=== PATIENT | female | born 1975 | race Two or more races ===

== ENCOUNTER 2023-11-30 00:31 | Emergency (ER) | payer OTHER, SELFPAY ==
[2023-11-30 00:38] VITALS: BP 168/84; PULSE 72; RESP 20; TEMP 36.8; O2SAT 99; BMI 33.1
--- NOTE | 2023-11-30 01:12 | ED_ITS ---
HPI - General Adult General Chief complaint: Epistaxis/Nosebleed Stated complaint: Bloody nose Time Seen by Provider: 11/30/23 00:39 Source: patient and family Mode of arrival: ambulatory Limitations: no limitations History of Present Illness HPI narrative: 48-year-old female presents to the ED with her adult son. Nose bleed for the past 3 hours, fairly vigorous. Initially started this morning upon awakening, t hen resolved. Did bleed again but resolved in the afternoon and now for the past 3 hours. Seems to be coming from the right side. Does drip down the back of the throat. Not on any anticoagulants. No prior history of nasal surgery. No facial injury or trauma. Not prone to nosebleeds. Reports her past medical history is benign, no major long-term health problems. No prescription medications or allergies. ROS is notable for the nose bleed and some nausea as a result, otherwise denies times 12 systems. No dizziness, lightheadedness or bloody stools. Related Data Home Medications ?Medication ?Instructions ?Recorded ?Confirmed No Known Home Medications 11/30/23 11/30/23 Allergies Allergy/AdvReac Type Severity Reaction Status Date / Time No Known Drug Allergies Allergy Verified 11/30/23 00:40 PFSH PFS Medical History No significant past medical history Surgical History No significant past surgical history Social History Smoking Status: Never smoker Second hand tobacco smoke exposure: No How often do you have a drink containing alcohol: never AUDIT-C Alcohol total score: 0 Non-prescribed substance use: denies use Exam Const: Vital Signs, click to edit/add: Vital Signs - 24 hr 11/30/23 00:38 Temperature 98.2 F Pulse Rate [Right Pulse Oximeter] 72 Respiratory Rate 20 Blood Pressure [Ri ght Upper Arm] 168/84 H Pulse Oximetry 99 Oxygen Delivery Me thod Room Air Common normals: alert General appearance: cooperative and well kempt Other: Moderate nasal bleeding with pea-sized stringy blood clots. All seems to be coming from right nose. Remarkably calm. HENMT: Common normals: normocephalic and head/scalp atraumatic Head and scalp: normocephalic and atraumatic Face and sinus: normal facial exam Mouth: oral and palatal mucosa normal Other: Moderate bleeding from right near. Two brisk for me to see this source but does seem anterior. Left side of the nose normal. Some blood streaming down the back of the throat, appears to be nasal etiology. Good dentition and normal mucosa otherwise. Eye: Common normals: conjunctivae normal General eye: normal appearance of both eyes Conjunctiva: conjunctiva(e) normal Neck & C-Spine: General: normal visual inspection Resp: Common normals: normal respiratory effort, no use of accessory muscles and clear to auscultation bilaterally Effort & inspection: able to speak in complete sentences Auscultation: clear to auscultation bilaterally Cardio: Common normals: regular rate, regular rhythm, S1 normal heart sound, S2 normal heart sound and no murmurs Rate: regular rate Rhythm: regular rhythm Heart sounds: S1 normal and S2 normal Neuro: Sensorium/orientation: alert Speech: speech normal Gait (neuro): normal gait Psych: Appearance: well kempt Attitude: engaged Insight: insight good Judgement: judgment good Skin: Common normals: no rashes or lesions noted Narrative: No bruises, petechiae or signs of trauma. General skin exam: no rashes or lesions noted Course Course ED Course: No nasal clamp applied in triage. Unable to tell the immediate source of the bleeding due to risk illness. Large rhino rocket is inserted and inflated. This did cause bleeding to ceased. Observed for about 3 or 4 minutes. Will re- evaluated about 30 minutes. Reevaluation(s) Time of Reevaluation #1: 01:49 Reevaluation #1: Rhino rocket was removed after about 25 minutes, and bleeding had ceased. Patient was having a lot of discomfort from the rhino rocket. Because of this, I reexamined and it does look like this was an anterior plexus bleed. I applied TXA to the area and a nasal clamp. I am going to let this firm up for about 10 minutes, consider silver nitrate after 10 minute trial. Time of Reevaluation #2: 02:17 Reevaluation #2: Repeat examination of the nose showed tiny area of oozing. After verbal consent, silver nitrate was gently applied to this area and a thin layer of the TXA again. Well tolerated. This did stop the bleeding. Nasal clamp was reapplied. Patient counseled on management. She requests a work note to not have to work in dry conditions anymore. I told her that I am unable to provide that as I do think that her untreated high blood pressure is a larger reason. She does not work around a freezer, only in a fredis condition, sounds like a typical factory. I have encouraged her to follow up with her primary care provider to treat the high blood pressure and they can discuss work restrictions if her nosebleeds persist. No blowing the nose for 2 days. Leave the nose clamp on for 1 hour. If the bleeding restarts, reapply the nose clamp and lie down for 30 minutes. ED if it does not stop after 30 minutes. Okay to use Tylenol if needed for mild discomfort. Written instructions provided, all questions answered. Vital Signs Vital signs: Initial Vital Signs Temperature 98.2 F 11/30/23 00:38 Temperature Source Temporal Artery Scan 11/30/23 00:38 Pulse Rate 72 11/30/23 00:38 Respiratory Rate 20 11/30/23 00:38 Blood Pressure 168/84 H 11/30/23 00:38 Blood Pressure Mean 112 H 11/30/23 00:38 Blood Pressure Position Sitting 11/30/23 00:38 Pulse Oximetry 99 11/30/23 00:38 Oxygen Delivery Method Room Air 11/30/23 00:38 Vital Signs Temperature 98.2 F 11/30/23 00:38 Pulse Rate 72 11/30/23 00:38 Respiratory Rate 20 11/30/23 00:38 Blood Pressure 168/84 H 11/30/23 00:38 Pulse Oximetry 99 11/30/23 00:38 Oxygen Delivery Method Room Air 11/30/23 00:38 Temperature 98.2 F 11/30/23 00:38 Pulse Rate 72 11/30/23 00:38 Respiratory Rate 20 11/30/23 00:38 Blood Pressure 168/84 H 11/30/23 00:38 Pulse Oximetry 99 11/30/23 00:38 Oxygen Delivery Method Room Air 11/30/23 00:38 Medications Administered Medications: Generic Name Dose Route Start Last Admin Trade Name Freq PRN Reason Stop Dose Admin Tranexamic Acid 1,000 mg 11/30/23 01:39 11/30/23 01:43 Tranexamic Acid 100 Mg/Ml Inj TOPICAL 11/30/23 01:40 1,000 mg ONCE ONE Administration Discharge Plan Discharge Clinical Impression: Epistaxis Patient Disposition: Home w/ Parent or Adult Condition: Improved Instructions: Nosebleed (ED) Additional Instructions: I am thankful that we were able to get the bleeding to stop. I applied a special blood clotting chemical into the nose and then burned the bleeding artery with silver nitrate. You will have lots of watery, blackish grade discharge for a few days. No blowing the nose for 2 days. You may gently dab only. It is common to have black tar E or coffee-ground stools for a few days because of the swallowed blood. Nausea is common as well. You may feel weak, lightheaded and dizzy for a few days until your body can replace the lost fluid and cells from the bleeding. Please leave the nasal clamp in place for the next hour. It is okay to use Tylenol 1000 mg every 6 hours as needed for mild discomfort. It is common for your eye to water and for there to be some facial swelling. Do not blow your nose for 2 days. You may gently dab and wipe with the clamp in place. If the bleeding recurs, it is not likely to be as strong. Apply the nasal clamp that you were given for 30 minutes and lie down. Try to remove the clamp after 30 minutes. If the bleeding still has not ceased, come to the emergency department. Your nose bleed most likely happen because of untreated high blood pressure. It is important that you follow-up with a primary care provider to get your blood pressure rechecked. Dry air at your work place could contribute, but untreated high blood pressure is far more likely and needs to be addressed 1st. Activity Level: No Restrictions Discharge Diet: Regular Prescriptions: No Action No Known Home Medications Follow Up/Referrals: Provider,Not a Local [Primary Care Provider] - Stand Alone Forms: Apptive Info Instructions
[2023-11-30] MEDS: TRANEXAMIC ACID 100 MG/ML INJ 1000 MG TOPICAL (01:43)
[2023-11-30 02:34] VITALS: BP 154/84; PULSE 74; RESP 20; TEMP 36.8; O2SAT 99
[2023-11-30 02:35] VITALS: BP 154/84; PULSE 74; RESP 20; TEMP 36.8
== END 2023-11-30 02:35 | disposition home or self-care (01) ==
PROVIDERS: Emergency Provider Family Medicine
DX: R04.0 Epistaxis (principal)
CPT/HCPCS: 30901; 99283

== ENCOUNTER 2024-02-25 14:08 | Emergency (ER) | payer OTHER, SELFPAY ==
[2024-02-25 14:28] VITALS: BP 169/80; PULSE 90; RESP 18; TEMP 39.3; O2SAT 93; BMI 34.8
[2024-02-25 15:20] LABS: PCR FLU A POSITIVE PCR FLU A (Negative); PCR FLU B Negative PCR FLU B (Negative); SARS PCR* Negative SARS-CoV-2 (Negative)
--- NOTE | 2024-02-25 15:56 | ED_ITS ---
HPI - General Adult General Chief complaint: Fever Stated complaint: Fever, chills, body aches Time Seen by Provider: 02/25/24 15:56 Source: patient Mode of arrival: ambulatory Limitations: no limitations History of Present Illness HPI narrative: 48-year-old female, history of untreated hypertension, presents today with body aches, fevers, fatigue, sore throat. This is going on for approximately 2 days. She complains of feeling lightheaded, nauseated. She has vomited on a couple of occasions. Denies any diarrhea. Has been able to drink a little bit but has had no appetite. Denies chest or abdominal pain. No skin rashes. Related Data Previous Rx's ?Medication ?Instructions ?Recorded ondansetron 4 mg disintegrating 4 mg PO BID-TID PRN nausea and 02/25/24 tablet vomiting #7 tabs oseltamivir 75 mg capsule (Tamiflu) 75 mg PO BID 5 days #10 caps 02/25/24 Allergies Allergy/AdvReac Type Severity Reaction Status Date / Time No Known Drug Allergies Allergy Verified 02/25/24 14:35 Review of Systems Status of ROS: Reports: 10 or more systems reviewed and unremarkable except as noted in History and below [facility] Medical History No significant past medical history Surgical History No significant past surgical history Social History Smoking Status: Never smoker Second hand tobacco smoke exposure: No How often do you have a drink containing alcohol: never AUDIT-C Alcohol total score: 0 Non-prescribed substance use: denies use Exam Narrative: Exam Narrative: Well-nourished well-developed patient in no acute distress but appears very fatigued. Alert and oriented. Answers questions appropriately. Mood and affect are appropriate. Thoughts are goal oriented and rational. No tangential or magical thinking noted. Patient speaks in full sentences without needing to catch her breath. HEENT: Normocephalic atraumatic. Pupils are equally round reactive to light. Extraocular muscles are intact. Conjunctivae are moist without any icterus noted. Moist mucous membranes. Posterior pharynx is normal. Neck is soft without any lymphadenopathy or thyromegaly. No masses are appreciated. Cardiovascular: Heart is regular rate and rhythm S1 and S2 are present without any murmurs. Lungs: Clear to auscultation bilaterally no wheezes rhonchi or rales are appreciated. Patient takes deep breaths without any discomfort. Abdomen: Soft and nontender nondistended with normal bowel sounds. Skin: Well perfused without any obvious rashes. Const: Vital Signs, click to edit/add: Vital Signs - 24 hr 02/25/24 14:28 Temperature 102.8 F H Pulse Rate [Right Pulse Oximeter] 90 Respiratory Rate 18 Blood Pressure [Le ft Upper Arm] 169/80 H Pulse Oximetry 93 Oxygen Delivery Me thod Room Air Course Course ED Course: Triple swab is positive for influenza A. Vital Signs Vital signs: Initial Vital Signs Temperature 102.8 F H 02/25/24 14:28 Temperature Source Oral 02/25/24 14:28 Pulse Rate 90 02/25/24 14:28 Pulse Rhythm Regular 02/25/24 14:28 Respiratory Rate 18 02/25/24 14:28 Blood Pressure 169/80 H 02/25/24 14:28 Blood Pressure Mean 109 H 02/25/24 14:28 Blood Pressure Position Sitting 02/25/24 14:28 Pulse Oximetry 93 02/25/24 14:28 Oxygen Delivery Method Room Air 02/25/24 14:28 Vital Signs Temperature 102.8 F H 02/25/24 14:28 Pulse Rate 90 02/25/24 14:28 Respiratory Rate 18 02/25/24 14:28 Blood Pressure 169/80 H 02/25/24 14:28 Pulse Oximetry 93 02/25/24 14:28 Oxygen Delivery Method Room Air 02/25/24 14:28 Temperature 102.8 F H 02/25/24 14:28 Pulse Rate 90 02/25/24 14:28 Respiratory Rate 18 02/25/24 14:28 Blood Pressure 169/80 H 02/25/24 14:28 Pulse Oximetry 93 02/25/24 14:28 Oxygen Delivery Method Room Air 02/25/24 14:28 Medical Decision Making MDM Narrative Medical decision making narrative: 48-year-old female with influenza a. Will treat with Tamiflu and Zofran. Follow-up as needed. Lab Data Lab results reviewed: Yes I reviewed the patient's lab results Labs: Lab Results 12/29/24 Range/Units 14:32 SARS-CoV-2 (PCR) Negative SARS-CoV-2 (Negative) Influenza Type A (PCR) POSITIVE PCR FLU A A (Negative) Influenza Type B (PCR) Negative PCR FLU B (Negative) Discharge Plan Discharge Clinical Impression: Influenza Patient Disposition: Home, Self-Care Condition: Stable Instructions: Influenza (ED) Additional Instructions: Take Tamiflu as prescribed. Okay to take Zofran as needed for nausea and vomiting. Make sure to do your best to stay well hydrated by taking small sips of water frequently throughout the day. Rest as much as you can. You are contagious until you have been afebrile for 24 hours. Prescriptions: New oseltamivir [Tamiflu] 75 mg capsule 75 mg PO BID 5 Days Qty: 10 0RF ondansetron 4 mg tablet,disintegrating 4 mg PO BID-TID PRN (Reason: nausea and vomiting) Qty: 7 0RF Follow Up/Referrals: Provider,Not a Local [Primary Care Provider] - Stand Alone Forms: [employer] Info Instructions
[2024-02-25 16:07] VITALS: RESP 18
== END 2024-02-25 16:05 | disposition home or self-care (01) ==
LOC: ED 16:04
PROVIDERS: Emergency Provider Family Medicine; PCP Surgery
DX: J09.X2 Influenza due to identified novel influenza A virus with other respiratory manifestations (principal)
CPT/HCPCS: 87631; 99283; 99284